=== PATIENT | female | born 1950 ===

== ENCOUNTER 2018-10-10 09:17 | Day surgery (SDC) | payer MEDICARE, OTHER, SELFPAY ==
[2018-10-10 09:42] VITALS: BP 104/78; PULSE 91; RESP 15; TEMP 37.1; O2SAT 98; BMI 26.1
[2018-10-10] MEDS: SODIUM CHLORIDE 0.9% 1,000 ML 200 ML IV (10:08)
--- NOTE | 2018-10-10 10:43 | PM.HP.1 ---
History of Present Illness Date Patient Seen: 10/10/18 Time Patient Seen: 10:43 Chief complaint: [id number] Narrative: Very pleasant 67-year-old lady presents today for screening colonoscopy. She denies any problems or symptoms related to the function of her GI tract. She reports she needs colonoscopy as per the health maintenance program. Her last colonoscopy was approximately 10 years ago which she reports was normal. She was told at that time to eat a high-fiber diet. Patient History Family & Social History Family History: Reviewed 10/10/18 by Destiny Melendez MD Social History: household members friend(s) Meds Home Medications Medication Instructions Recorded Confirmed Type atorvastatin [Lipitor] 10 mg PO QDAY #0 01/01/18 10/10/18 History amlodipine 2.5 mg PO DAILY 10/10/18 10/10/18 History Allergies Allergy/AdvReac Type Severity Reaction Status Date / Time bacitracin Allergy Severe Swelling Verified 10/10/18 09:39 [From Neosporin of the Eye ([id number])] neomycin Allergy Severe Swelling Verified 10/10/18 09:39 [From Neosporin of the Eye ([id number])] polymyxin B Allergy Severe Swelling Verified 10/10/18 09:39 [From Neosporin of the Eye ([id number])] ampicillin [AMPICILLIN] Allergy Intermediate Rash Unverified 10/10/18 09:39 cefpodoxime [From VANTIN] Allergy Mild Rash Verified 10/10/18 09:39 ibandronate sodium Allergy Mild white head Unverified 10/10/18 09:39 [From BONIVA] under arms Review of Systems Review of Systems All systems reviewed & are unremarkable except as noted in HPI and below Exam Vital Signs (past 8 hours): - 10/10/18 09:42 Temperature 98.8 F Pulse Rate 91 H Respiratory Rate 15 Blood Pressure 104/78 Pulse Oximetry 98 Oxygen Delivery Method Room Air Narrative Exam Narrative: Very pleasant well-nourished well-developed lady in no distress HEENT: Normocephalic and atraumatic, pupils equal round reactive to light accommodation with anicteric sclera Lungs: Clear to auscultation bilaterally Heart: Regular rate and rhythm without murmur rub or gallop Abdomen: Soft, nontender, active bowel sounds Extremities: Warm well perfused Assessment & Plan Plan: Assessment/Plan Narrative: Very pleasant 67-year-old lady here for screening colonoscopy. We discussed risks and benefits of the procedure the patient expressed a desire to complete it today
[2018-10-10] MEDS: MIDAZOLAM 5 MG/5 ML VIAL IV (10:50)
[2018-10-10] MEDS: fentaNYL 250 MCG/5 ML INJ IV (10:51)
--- NOTE | 2018-10-10 11:05 | PM.OP.1 ---
Operative Date/Time/Diagnoses Date of procedure: 10/10/18 Time of procedure: 11:06 Pre-op diagnosis: Screening Post-op diagnosis: same Procedure & Clinicians Procedure: Colonoscopy to the cecum Same procedure as scheduled: Yes Indications: Last colonoscopy 10 years ago Surgeon: Destiny Melendez Anesthesia Type: Sedation (Versed 5 mg; fentanyl 150 mcg) Operative Notes Findings: 1. Excellent prep 2. No polyps or mass lesions 3. No AV malformations 4. Significant diverticulosis and a short-segment limited to the sigmoid region 5. Grade 1-2 internal hemorrhoids Closure Type: not applicable Specimen(s): none sent Procedure in detail: After obtaining informed consent, the patient was brought to the GI suite and placed in the left lateral decubitus position on the examination table. After placement of appropriate monitors, the patient was given incremental doses of Versed and Fentanyl until an appropriate level of sedation was achieved. A time out was held per [facility] protocol. A digital rectal examination was performed and did not reveal any masses or obstructing lesions. The colonoscope was gently passed into the patient's anus and the entire colon navigated to the level of the cecum with minimal difficulty. Once in the cecum, the scope was withdrawn being sure to go before and beyond all mucosal folds and prominences and get an excellent examination. The findings are noted above. At the level of the rectal vault, the scope was retroflexed and the internal anal canal was examined. The scope was straightened and air aspirated from the colon. The instrument was removed from the patient's body and the procedure was concluded. The patient was allowed to awaken from sedation without difficulty and taken to the post-anesthesia care unit in good condition. Total sedation time was 18 min Total withdrawal time was 7 min 12 sec Condition: stable Disposition: PACU Plan for aftercare: 1. Discharge to home 2. Plan for next colonoscopy in 10 years or as clinically indicated
[2018-10-10 11:13] VITALS: BP 94/61; PULSE 68; RESP 9; TEMP 36.6; O2SAT 100
[2018-10-10 11:18] VITALS: BP 86/55; PULSE 69; RESP 5; O2SAT 100
[2018-10-10 11:22] VITALS: BP 95/60; PULSE 83; RESP 12; TEMP 37.2; O2SAT 99
[2018-10-10 11:25] VITALS: BP 100/61; PULSE 81; RESP 13; TEMP 37.1; O2SAT 99
[2018-10-10 11:55] VITALS: BP 104/68; PULSE 87; RESP 16; TEMP 36.4; O2SAT 98
== END 2018-10-10 12:10 | disposition home or self-care (01) ==
PROVIDERS: Family Provider Family Medicine; PCP Family Medicine; Visit Provider Surgery
PROC: 0DJD8ZZ Inspection of Lower Intestinal Tract, Via Natural or Artificial Opening Endoscopic (ICD-10-PCS; CPT 45378; principal; 2018-10-10 10:45)
DX: Z12.11 Encounter for screening for malignant neoplasm of colon (principal); K57.30 Diverticulosis of large intestine without perforation or abscess without bleeding; K64.1 Second degree hemorrhoids
CPT/HCPCS: G0121; 99152; J2250; J3010